=== PATIENT | male | born 1945 | race American Indian/Alaskan Native ===

== ENCOUNTER 2018-12-10 10:53 | Emergency (ER) | payer OTHER ==
--- NOTE | 2018-12-10 11:04 | Emergency Department Report ---
ED Neuro Deficit HPI - General Stated Complaint: NEURO SYMPTOMS Time Seen by Provider: 12/10/18 10:56 Source: patient, old records reviewed (no previous record) Mode of arrival: Wheelchair Limitations: No Limitations - History of Present Illness Initial Comments: 73-year-old male with a past medical history of hypertension and elevated cholesterol presents to the hospital with stroke symptoms. Patient apparently was normal last at 5 PM when he went to bed. At 10:10 AM patient knocked on his roommates door and was noted to have for speech and facial droop. Patient develops for speech and facial droop. He was ambulatory at the scene. He denies any pain. He states he is compliant with his blood pressure medication. Patient complains of left sided numbness. Medications include: Plavix. - Related Data Home Medications: Home Medications Medication Instructions Recorded Confirmed Last Taken Carvedilol 6.25 mg PO BID 12/10/18 12/10/18 Unknown Clopidogrel [Plavix] 75 mg PO DAILY 12/10/18 12/10/18 Unknown Lisinopril [Zestril] 10 mg PO DAILY 12/10/18 12/10/18 Unknown Simvastatin [Zocor TAB] 10 mg PO HS 12/10/18 12/10/18 Unknown amLODIPine [Norvasc] 5 mg PO DAILY 12/10/18 12/10/18 Unknown Allergies/Adverse Reactions: Allergies Allergy/AdvReac Type Severity Reaction Status Date / Time No Known Allergies Allergy Unverified 12/10/18 11:30 ED Review of Systems ROS: Stated complaint: NEURO SYMPTOMS Other details as noted in HPI Comment: All other systems reviewed and negative ED Past Medical Hx - Past Medical History Previous Medical History?: Yes Hx Hypertension: Yes Hx Heart Attack/AMI: Yes Additional medical history: elevated cholesterol - Medications Home Medications: Home Medications Medication Instructions Recorded Confirmed Last Taken Type Carvedilol 6.25 mg PO BID 12/10/18 12/10/18 Unknown History Clopidogrel [Plavix] 75 mg PO DAILY 12/10/18 12/10/18 Unknown History Lisinopril [Zestril] 10 mg PO DAILY 12/10/18 12/10/18 Unknown History Simvastatin [Zocor TAB] 10 mg PO HS 12/10/18 12/10/18 Unknown History amLODIPine [Norvasc] 5 mg PO DAILY 12/10/18 12/10/18 Unknown History ED Neuro Physical Exam - General Suspected Stroke: Yes - NIHSS Assessment Interval: Baseline 1a. Level of Consciousness: alert/keenly responsive 1b. LOC Questions: answers 1 question correctly 1c. LOC Commands: performs tasks correctly 2. Best Gaze: normal 3. Visual: no visual loss 4. Facial Palsy: partial paralysis (right) 5b. Motor Arm Right: no drift 5a. Motor Arm Left: no drift 6a. Motor Leg Left: no drift 6b. Motor Leg Right: no drift 7. Limb Ataxia: absent 8. Sensory: mild/moderate sensory loss (left) 9. Best Language: mild/moderate aphasia 10. Dysarthria: mild/moderate dysarthria 11. Extinction/Inattention: visual/tactile inattention (tactile) Total Score: 7 Stroke Severity: Moderate Stroke - Other Other exam information: General: No limitations, patient is alert in no acute distress Head exam: Atraumatic, normocephalic Eyes exam: Normal appearance, pupils equal reactive to light, extraocular movements intact ENT: Moist mucous membrane, normal oropharynx Neck exam: Normal inspection, full range of motion, no meningismus nontender Respiratory exam: Clear to auscultation bilateral, no wheezes, rales, crackles Cardiovascular: Normal rate and rhythm Abdomen: Soft, nondistended, and nontender, with normal bowel sounds, no rebound, or guarding Extremity: Full range of motion normal inspection no deformity Back: Normal Inspection, full range of motion, no tenderness Neurologic: Alert, see NIHSS Psychiatric: normal affect, normal mood Skin: Warm, dry, intact It is very difficult assessing patient differential exam since he answers yes to most questions regarding feedback regardless if it is correct or not. ED Course Vital Signs 12/10/18 12/10/18 12/10/18 11:08 11:16 11:17 Temperature 98.5 F Pulse Rate 67 79 74 Respiratory 15 15 16 Rate Blood Pressure 156/88 156/88 Blood Pressure [Left] O2 Sat by Pulse 93 93 100 Oximetry 12/10/18 12/10/18 12/10/18 11:30 11:46 12:00 Temperature Pulse Rate 71 72 69 Respiratory 25 H 14 24 Rate Blood Pressure 156/88 156/90 156/90 Blood Pressure [Left] O2 Sat by Pulse 95 94 94 Oximetry 03/17/19 03/17/19 03/17/19 12:12 12:16 12:46 Temperature Pulse Rate 68 Respiratory 16 15 15 Rate Blood Pressure 170/80 170/80 Blood Pressure [Left] O2 Sat by Pulse 94 97 Oximetry 12/10/18 12/10/18 12/10/18 13:00 13:16 13:30 Temperature Pulse Rate Respiratory 19 18 17 Rate Blood Pressure 143/80 143/80 143/80 Blood Pressure [Left] O2 Sat by Pulse 89 94 94 Oximetry 12/10/18 12/10/18 12/10/18 13:46 14:00 14:16 Temperature Pulse Rate Respiratory 16 20 21 Rate Blood Pressure 150/83 150/83 153/88 Blood Pressure [Left] O2 Sat by Pulse 96 94 95 Oximetry 12/10/18 15:22 Temperature 98.4 F Pulse Rate 68 Respiratory 16 Rate Blood Pressure Blood Pressure 139/70 [Left] O2 Sat by Pulse 97 Oximetry - Consultations Consultation #1: 12/10/18 10:[address] Becker. He will evaluate patient upon return from CT 12/10/18 14:23 Dr Becker rec transfer after cta result case d/w Providers at [facility], accepted by DR Harmon for transfer to [facility] - Lab Data Result diagrams: 12/10/18 11:55 12/10/18 13:03 Lab Results 12/10/18 12/10/18 12/10/18 Range/Units 11:12 11:55 11:55 WBC 5.5 (4.5-11.0) K/mm3 RBC 4.81 (3.65-5.03) M/mm3 Hgb 14.7 (11.8-15.2) gm/dl Hct 42.8 (35.5-45.6) % MCV 89 (84-94) fl MCH 31 (28-32) pg MCHC 34 (32-34) % RDW 14.5 (13.2-15.2) % Plt Count 322 (140-440) K/mm3 Lymph % (Auto) 35.4 H (13.4-35.0) % [place] % (Auto) 13.4 H (0.0-7.3) % Eos % (Auto) 1.3 (0.0-4.3) % Baso % (Auto) Surgery Nurse Lymph # 1.9 (1.2-5.4) K/mm3 [place] # 0.7 (0.0-0.8) K/mm3 Eos # 0.1 (0.0-0.4) K/mm3 Baso # 0.1 (0.0-0.1) K/mm3 Seg Neutrophils % 48.6 (40.0-70.0) % Seg Neutrophils # 2.7 (1.8-7.7) K/mm3 PT 13.3 (12.2-14.9) Sec. INR 0.95 (0.87-1.13) APTT 24.8 (24.2-36.6) Sec. Thrombin Time 16.1 (15.1-19.6) Sec. Sodium Potassium Chloride Carbon Dioxide Anion Gap BUN (9-20) mg/dL Creatinine (0.8-1.5) mg/dL Estimated GFR ml/min BUN/Creatinine Ratio % Glucose POC Glucose 90 (70-105) Calcium Total Bilirubin AST ALT Alkaline Phosphatase Total Creatine Kinase (55-170) units/L CK-MB (CK-2) (0.0-4.0) ng/mL CK-MB (CK-2) Rel Index (0-4) Troponin T (0.00-0.029) ng/mL Total Protein Albumin Albumin/Globulin Ratio Urine Opiates Screen Urine Methadone Screen Ur Barbiturates Screen Ur Phencyclidine Scrn Ur Amphetamines Screen U Benzodiazepines Scrn Urine Cocaine Screen U Marijuana (THC) Screen Drugs of Abuse Note 12/10/18 12/10/18 12/10/18 Range/Units 11:55 11:55 13:03 WBC (4.5-11.0) K/mm3 RBC (3.65-5.03) M/mm3 Hgb (11.8-15.2) gm/dl Hct (35.5-45.6) % MCV (84-94) fl MCH (28-32) pg MCHC (32-34) % RDW (13.2-15.2) % Plt Count (140-440) K/mm3 Lymph % (Auto) (13.4-35.0) % [place] % (Auto) (0.0-7.3) % Eos % (Auto) (0.0-4.3) % Baso % (Auto) Lymph # (1.2-5.4) K/mm3 [place] # (0.0-0.8) K/mm3 Eos # (0.0-0.4) K/mm3 Baso # (0.0-0.1) K/mm3 Seg Neutrophils % (40.0-70.0) % Seg Neutrophils # (1.8-7.7) K/mm3 PT (12.2-14.9) Sec. INR (0.87-1.13) APTT (24.2-36.6) Sec. Thrombin Time (15.1-19.6) Sec. Sodium TNR 140 Potassium TNR 4.2 Chloride TNR 101.2 Carbon Dioxide TNR 27 Anion Gap TNR 16 BUN 18 17 (9-20) mg/dL Creatinine 1.3 1.2 (0.8-1.5) mg/dL Estimated GFR > 60 > 60 ml/min BUN/Creatinine Ratio 14 14 % Glucose TNR 103 H POC Glucose (70-105) Calcium TNR 9.2 Total Bilirubin TNR 0.90 AST TNR 22 ALT TNR 18 Alkaline Phosphatase TNR 67 Total Creatine Kinase 332 H (55-170) units/L CK-MB (CK-2) 3.6 (0.0-4.0) ng/mL CK-MB (CK-2) Rel Index 1.0 (0-4) Troponin T < 0.010 (0.00-0.029) ng/mL Total Protein TNR 7.0 Albumin TNR 4.1 Albumin/Globulin Ratio TNR 1.4 Urine Opiates Screen Urine Methadone Screen Ur Barbiturates Screen Ur Phencyclidine Scrn Ur Amphetamines Screen U Benzodiazepines Scrn Urine Cocaine Screen U Marijuana (THC) Screen Drugs of Abuse Note 12/10/18 Range/Units 13:50 WBC (4.5-11.0) K/mm3 RBC (3.65-5.03) M/mm3 Hgb (11.8-15.2) gm/dl Hct (35.5-45.6) % MCV (84-94) fl MCH (28-32) pg MCHC (32-34) % RDW (13.2-15.2) % Plt Count (140-440) K/mm3 Lymph % (Auto) (13.4-35.0) % [place] % (Auto) (0.0-7.3) % Eos % (Auto) (0.0-4.3) % Baso % (Auto) Lymph # (1.2-5.4) K/mm3 [place] # (0.0-0.8) K/mm3 Eos # (0.0-0.4) K/mm3 Baso # (0.0-0.1) K/mm3 Seg Neutrophils % (40.0-70.0) % Seg Neutrophils # (1.8-7.7) K/mm3 PT (12.2-14.9) Sec. INR (0.87-1.13) APTT (24.2-36.6) Sec. Thrombin Time (15.1-19.6) Sec. Sodium Potassium Chloride Carbon Dioxide Anion Gap BUN (9-20) mg/dL Creatinine (0.8-1.5) mg/dL Estimated GFR ml/min BUN/Creatinine Ratio % Glucose POC Glucose (70-105) Calcium Total Bilirubin AST ALT Alkaline Phosphatase Total Creatine Kinase (55-170) units/L CK-MB (CK-2) (0.0-4.0) ng/mL CK-MB (CK-2) Rel Index (0-4) Troponin T (0.00-0.029) ng/mL Total Protein Albumin Albumin/Globulin Ratio Urine Opiates Screen Presumptive negative Urine Methadone Screen Presumptive negative Ur Barbiturates Screen Presumptive negative Ur Phencyclidine Scrn Presumptive negative Ur Amphetamines Screen Presumptive negative U Benzodiazepines Scrn Presumptive negative Urine Cocaine Screen Presumptive negative U Marijuana (THC) Screen Presumptive negative Drugs of Abuse Note Disclamer - EKG Data -: EKG Interpreted by [facility] EKG shows normal: sinus rhythm, axis (qrs -34), QRS complexes (qrsd 93), ST-T waves (lvh with repol) Rate: normal (70) When compared to previous EKG there are: previous EKG unavailable - Radiology Data Radiology results: report reviewed PROCEDURE: CT HEAD/BRAIN WO CON TECHNIQUE: A noncontrast CT of the head was performed. HISTORY: Stroke symptoms COMPARISON: None FINDINGS: The attenuation there is an acute infarct in left posterior edema in left posterior parietal region concerning for an acute infarct. There is no significant mass effect or midline shift. There is no acute intracranial hemorrhage seen. Ventricular size is appropriate for brain volume. IMPRESSION: Acute left posterior parietal infarct. - Medical Decision Making Upon patient presentation EMS reported that onset of symptoms at 10:15 AM. After contact the patient's roommate via telephone and further clarification, it appears that the patient woke up with the symptoms will last known well time at 5 PM. Also acute stroke is identified on CT suggesting onset greater than 3 hours with unknown start time. Therefore, patient is not a candidate for TPA. - Thrombolytic Inclusion/Exclusion Thrombolytic Exclusion Criteria: Onset of Symptoms Unknown Critical Care Time: Yes Critical care time in (mins) excluding proc time.: 35 Critical care attestation.: If time is entered above; I have spent that time in minutes in the direct care of this critically ill patient, excluding procedure time. ED Disposition Clinical Impression: Acute CVA (cerebrovascular accident), Slurred speech, Facial droop, Aphasia, HTN (hypertension), Hx of coronary artery disease, Carotid occlusion, left Disposition: [id number]/TX-[id number] ANOTHER TYPE HLTHCARE Is pt being admited?: No Does the pt Need Aspirin: No Condition: Stable Instructions: Hypertension (ED) Referrals: PRIMARY CARE, [Primary Care Provider] - 3-5 Days Time of Disposition: 14:24 (Accepted for transfer to [facility])
--- NOTE | 2018-12-10 11:20 | Cat Scan Report ---
PROCEDURE: CT HEAD/BRAIN WO CON TECHNIQUE: A noncontrast CT of the head was performed. HISTORY: Stroke symptoms COMPARISON: None FINDINGS: The attenuation there is an acute infarct in left posterior edema in left posterior parietal region c oncerning for an acute infarct. There is no significant mass effect or midline shift. There is no acute intracranial hemorrhage seen. Ventricular size is appropriate for brain volume. IMPRESSION: Acute left posterior parietal infarct. Symone Frances RN was informed of findings on 12/10/2018 at 11:13 AM EST. This document is electronically signed by Penny Ortiz MD., December 10 2018 11:19:01 AM ET
[2018-12-10] MEDS ORDERED: ASPIRIN PO ONE (12:00)
[2018-12-10 12:12] LABS: Basophils # (Auto) 0.1 K/mm3 (0.0-0.1); Eosinophils # (Auto) 0.1 K/mm3 (0.0-0.4); Eosinophils % (Auto) 1.3 % (0.0-4.3); Hematocrit 42.8 % (35.5-45.6); Hemoglobin 14.7 gm/dl (11.8-15.2); Lymphocytes # (Auto) 1.9 K/mm3 (1.2-5.4); Lymphocytes % (Auto) 35.4 % (13.4-35.0); Mean Corpuscular HGB Conc 34 % (32-34); Mean Corpuscular Volume 89 fl (84-94); Monocytes # (Auto) 0.7 K/mm3 (0.0-0.8); Monocytes % (Auto) 13.4 % (0.0-7.3); Platelet Count 322 K/mm3 (140-440); Red Blood Count 4.81 M/mm3 (3.65-5.03); Red Cell Distribution Width 14.5 % (13.2-15.2)
[2018-12-10 12:17] LABS: INR 0.95 (0.87-1.13); Partial Thromboplastin Time 24.8 Sec. (24.2-36.6); Thrombin Time 16.1 Sec. (15.1-19.6)
[2018-12-10 12:22] LABS: Creatine Kinase MB 3.6 ng/mL (0.0-4.0)
[2018-12-10 12:23] LABS: BUN/Creatinine Ratio 14; Blood Urea Nitrogen 18 mg/dL (9-20); Hemolysis Index 1266
[2018-12-10 12:29] LABS: Alanine Aminotransferase TNR units/L (7-56); Albumin TNR g/dL (3.9-5); Calcium TNR mg/dL (8.4-10.2)
[2018-12-10 13:31] LABS: Alanine Aminotransferase 18 units/L (7-56); Albumin 4.1 g/dL (3.9-5); BUN/Creatinine Ratio 14; Blood Urea Nitrogen 17 mg/dL (9-20); Calcium 9.2 mg/dL (8.4-10.2); Hemolysis Index 13
--- NOTE | 2018-12-10 13:33 | Cat Scan Report ---
PROCEDURE: CT ANGIO NECK TECHNIQUE: CT angiography of the neck performed. IV contrast was administered. Axial images and connor nal and sagittal reformatted images were obtained. MIP reformatted images were obtained. HISTORY: acute stroke sx, slurred speech, right face droop COMPARISON: None FINDINGS: There is moderate calcified plaque in carotid bulbs bilaterally. On the left, there is near occlusion of left carotid bulb. Only pinpoint flow is seen within this reg ion. This is concerning for carotid bulb thrombus. On the right there is no significant carotid stenosis or dissection seen. Vertebral artery flow seen bilaterally. There is no vertebral stenosis or dissection seen. IMPRESSION: Thrombus causing near occlusion of left carotid bulb. This document is electronically signed by Penny Ortiz MD., December 10 2018 01:30:53 PM ET
--- NOTE | 2018-12-10 13:44 | Cat Scan Report ---
PROCEDURE: CT ANGIO HEAD TECHNIQUE: CT angiography head was performed. IV contrast was administered. Axial images and coronal and sagittal reformatted images were obtained. Reformatted images were obtained. HISTORY: acute stroke sx, slurred speech, right face droop COMPARISON: None FINDINGS: There is no intracranial intravascular filling defect seen. Anterior and posterior circulations are m aintained. There is no cerebral aneurysm seen. IMPRESSION: There is no acute abnormality identified. This document is electronically signed by Penny Ortiz MD., December 10 2018 01:41:40 PM ET
[2018-12-10 14:47] LABS: Amphetamine Screen,Urine PRESUMPTIVE NEGATIVE; Benzodiazepines Screen,Urine PRESUMPTIVE NEGATIVE; Cannabinoid Screen,Urine PRESUMPTIVE NEGATIVE; Cocaine Screen,Urine PRESUMPTIVE NEGATIVE; Methadone Screen,Urine PRESUMPTIVE NEGATIVE; Opiate Screen,Urine PRESUMPTIVE NEGATIVE
[2018-12-10 15:23] VITALS: BP 139/70
== END 2018-12-10 15:39 | disposition other institution (70) ==
LOC: EDBD → ED 10:53
DX: I63.9 Cerebral infarction, unspecified (principal); R47.81 Slurred speech; R29.810 Facial weakness; I10 Essential (primary) hypertension; E78.00 Pure hypercholesterolemia, unspecified; Z79.02 Long term (current) use of antithrombotics/antiplatelets
CPT/HCPCS: 36415; 70450; 70496; 70498; 80053; 80307; 82550; 82553; 82962; 84484; 85025; 85610; 85670; 85730; 93005; 93010; 99291; Q9967